=== PATIENT | female | born 1935 | race Caucasian/White ===

== ENCOUNTER 2017-07-01 08:09 | Outpatient (CLI) | payer MEDICARE ==
--- NOTE | 2017-07-01 11:16 | MRI ---
BRAIN MRI WITHOUT CONTRAST: Date: 07/01/17 HISTORY: Unspecified syncope. Fainting x6 months. COMPARISON: None. TECHNIQUE: MRI brain is performed without intravenous Gadolinium administration. Multisequential, multiplanar im aging is performed. FINDINGS: No hemorrhage on the axial gradient echo sequence. Age-appropriate atrophy. Cortical woody-white matte r differentiation is preserved. Ventricles and sulci are patent and symmetric. Central arterial flow- voids are maintained. Absent restricted diffusion. Midline brain parenchymal structures are unremarka ble. Calvarium has a normal T1 marrow signal intensity. Adequate aeration of the sinuses and mastoid air cells. IMPRESSION: 1. Absent restricted diffusion. No acute infarct. 2. Age-appropriate atrophy. POS: JOSHUA
== END 2017-07-01 08:10 | disposition home or self-care (01) ==
LOC: MRI 08:09
PROVIDERS: ATTEND Family Medicine
DX: R55 Syncope and collapse (principal); G31.89 Other specified degenerative diseases of nervous system
CPT/HCPCS: 70551

== ENCOUNTER 2017-10-17 15:46 | Observation (INO) | payer MEDICARE ==
[2017-10-17 16:12] LABS: #Basophils 0.1 thou/uL (0.0-0.2); #Eosinphils 0.2 thou/uL (0.0-0.7); #Lymphocytes 1.5 thou/uL (1.20-3.40); #Monocytes 0.5 thou/uL (0.11-0.59); #Neutrophils 4.5 thou/uL (1.40-6.50); %Basophils 0.8 % (0.0-1.0); %Eosinophils 3.2 % (0.0-10.0); %Lymphocytes 22.1 % (21.0-51.0); %Neutrophils 66.9 % (42.0-75.0); Hemoglobin 13.7 g/dL (12.0-16.0); Mean Corpuscular HGB CONC 33.4 g/dL (32.0-36.0); Mean Corpuscular Hemoglobin 30.7 pg (27.0-31.0); Mean Platelet Volume 9.5 fL (7.4-10.4); Platelet Count 151 thou/uL (130-400); Red Blood Cell (RBC) Count 4.44 mill/uL (4.20-5.40); White Blood Cell (WBC) Count 6.8 thou/uL (4.8-10.8)
--- NOTE | 2017-10-17 16:31 | CT ---
NONCONTRAST CT OF THE BRAIN 10/17/17 INDICATION: 82-year-old female with headache and chest pain. COMPARISON: Prior CT of the brain dated 08/12/13. Prior MR of the brain dated 07/01/17. FINDINGS: There is a small single focus of slight hyperdensity witin the left long radiata on image 16 of ser ies 2 which is nonspecific. There is mild chronic small vessel white matter ischemic change. Septum p ellucidum and third ventricle are midline. Skull and extracranial soft tissues are unremarkable. Ther e are a few opacified air cells within the ethmoid region. IMPRESSION: 1. Small focus of increased density within the periventricular white matter of the left cerebral hemisphere is new from the comparison of 2013. No visible signal abnormality was evidence on a cesar rison MR of the brain dated 07/01/17. A small focus of density may be artifactual in nature. A small fo oswaldo mass lesion within the left cerebral white matter cannot be entirely excluded. A follow up MRI of the brain with and without contrast is recommended for additional characterization. 2. No overt evidence to suggest intraparenchymal hemorrhage, infarct or hydrocephalus. 3. There is generalized cerebral atrophy which appears similar to the comparison MR examination. POS: CET
[2017-10-17 16:34] LABS: ALT (SGPT) 13 U/L (8-55); AST (SGOT) 19 U/L (5-34); Albumin 4.4 g/dL (3.4-4.8); Alkaline Phosphatase 56 U/L (40-150); Anion Gap 9 mmol/L (10-20); BUN (Urea Nitrogen) 13 mg/dL (9.8-20.1); Bilirubin, Total 0.8 mg/dL (0.2-1.2); Calc. Creatinine Clearance 0 mL/min (70-130); Calcium 10.4 mg/dL (7.8-10.44); Carbon Dioxide 33 mmol/L (23-31); Chloride 104 mmol/L (98-107); Estimated GFR-MDRD 60; Globulin 2.7 g/dL (2.4-3.5); Glucose 99 mg/dL (83-110); Potassium 4.4 mmol/L (3.5-5.1); Protein, Total 7.1 g/dL (6.0-8.3); Sodium 142 mmol/L (136-145)
[2017-10-17 16:38] LABS: Troponin I Less than 0.010 ng/mL (< 0.028)
--- NOTE | 2017-10-17 17:04 | RAD ---
AP VIEW OF THE CHEST 10/17/17 INDICATION: History of chest pain and facial numbness. COMPARISON: Prior dated 12/28/10. FINDINGS: There is stable cardiomegaly. There is a new loop recorder overlying the left chest wall. There is ad vanced degenerative change of the left glenohumeral joint Mild vascular calcifications are again seen involving the aortic arch. No consolidation, pleural effusion, pneumothorax is evident. IMPRESSION: No definite acute cardiopulmonary abnormality. POS: CET
[2017-10-17] MEDS ORDERED: Benzonatate 100 MG CAP PO PRN (18:23)
[2017-10-17] MEDS ORDERED: Bisacodyl 5 MG TAB PO PRN (18:23)
[2017-10-17] MEDS ORDERED: Nitroglycerin 0.4 MG TAB (25 Tab Bottle) SL PRN (18:23)
[2017-10-17] MEDS ORDERED: hydrALAZINE 20 MG/ML VIAL SLOW IVP PRN (18:23)
[2017-10-17] MEDS ORDERED: Lorazepam 1 MG TAB PO PRN (18:23)
[2017-10-17] MEDS ORDERED: Loratadine 10 MG TAB PO PRN (18:23)
[2017-10-17] MEDS ORDERED: Ondansetron HCl/PF 4 MG/2 ML Vial IVP PRN (18:23)
[2017-10-17] MEDS ORDERED: Acetaminophen 325 MG TAB PO PRN (18:23)
[2017-10-17] MEDS ORDERED: traMADol HCl 50 MG TAB PO PRN (18:23)
[2017-10-17] MEDS ORDERED: Diabetic Tussin 200 MG/10 ML UDCUP PO PRN (18:23)
[2017-10-17] MEDS ORDERED: Senokot 8.6 MG TAB PO PRN (18:23)
[2017-10-17 19:29] LABS: Troponin I Less than 0.010 ng/mL (< 0.028)
--- NOTE | 2017-10-17 19:58 | ULT ---
EXAM: US carotid doppler standard HISTORY: TIA FINDINGS: Antegrade flow to both vertebral arteries. No elevated peak systolic velocities within the internal carotid arteries. Moderate plaque left internal carotid artery near the bulb. IMPRESSION: No hemodynamically significant stenosis. POS: HOME
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
[2017-10-17] MEDS ORDERED: levETIRAcetam 100 mg/ml Oral Solution PO SCH (21:00)
[2017-10-17] MEDS ORDERED: Atorvastatin Calcium 20 MG TAB PO SCH (21:00)
[2017-10-17 22:29] LABS: Troponin I 0.016 ng/mL (< 0.028)
[2017-10-17] MEDS ORDERED: Acetaminophen 325 MG TAB ONE (22:47)
[2017-10-18] MEDS: Nebivolol HCl 5 MG TAB PO SCH ×2 (04:55→10:54)
[2017-10-18 05:32] LABS: #Eosinphils 0.3 thou/uL (0.0-0.7); #Lymphocytes 1.2 thou/uL (1.20-3.40); #Monocytes 0.4 thou/uL (0.11-0.59); #Neutrophils 3.4 thou/uL (1.40-6.50); %Basophils 0.4 % (0.0-1.0); %Eosinophils 5.1 % (0.0-10.0); %Lymphocytes 23.3 % (21.0-51.0); %Neutrophils 63.3 % (42.0-75.0); Hemoglobin 12.6 g/dL (12.0-16.0); Mean Corpuscular HGB CONC 33.6 g/dL (32.0-36.0); Mean Corpuscular Hemoglobin 30.9 pg (27.0-31.0); Mean Corpuscular Volume 91.8 fL (78.0-98.0); Mean Platelet Volume 9.4 fL (7.4-10.4); Platelet Count 123 thou/uL (130-400); Red Blood Cell (RBC) Count 4.08 mill/uL (4.20-5.40); White Blood Cell (WBC) Count 5.3 thou/uL (4.8-10.8)
[2017-10-18 05:43] LABS: Anion Gap 12 mmol/L (10-20); BUN (Urea Nitrogen) 12 mg/dL (9.8-20.1); Calc. Creatinine Clearance 53 mL/min (70-130); Calcium 9.6 mg/dL (7.8-10.44); Carbon Dioxide 29 mmol/L (23-31); Cardiac Risk 2.3 (Less than 4.5); Chloride 107 mmol/L (98-107); Cholesterol 158 mg/dl (< 200 Desired); Estimated GFR-MDRD 75; Glucose 89 mg/dL (83-110); HDL Cholesterol 70 mg/dL (>60 Neg Risk); LDL Cholesterol, Calculated 80 mg/dL; Potassium 4.3 mmol/L (3.5-5.1); Sodium 144 mmol/L (136-145); Triglycerides 41 mg/dL (Less than 150)
[2017-10-18] MEDS ORDERED: Lisinopril 10 MG TAB PO SCH (09:00)
[2017-10-18] MEDS ORDERED: Enoxaparin Sodium 40 MG/0.4 ML SYRINGE SC SCH (09:00)
[2017-10-18] MEDS ORDERED: Amlodipine 5 MG TAB PO SCH ×2 (09:00→21:00)
[2017-10-18] MEDS ORDERED: Aspirin 325 mg Enteric Coated Tablet PO SCH (09:00)
--- NOTE | 2017-10-18 11:33 | MRI ---
MRI BRAIN WITH AND WITHOUT CONTRAST: 10/18/2017 HISTORY: An 82-year-old female with a TIA and headache. Follow-up abnormality found on noncontrast brain CT o f 10/17/2017. TECHNIQUE: Multiple sequences obtained in axial, sagittal, and coronal planes; pre and post IV injection of gado linium-based contrast agent: MultiHance 11 mL. FINDINGS: The ventricles are normal in size and configuration. There is no restricted diffusion, abnormal intr aaxial enhancement, mass, midline shift or any other mass effect, recent intraaxial hemorrhage, or ex traaxial fluid collection. There are a few scattered punctate T2-hyperintensities in the cerebral wh ite matter consistent with mild chronic ischemic white matter changes due to mild microvascular ather osclerosis. The tiny focal hyperdensity in the left long radiata, demonstrated on the CT of 2017, does not correspond to any focal signal abnormality or abnormal enhancement on this MRI. In fa ct, it does not correspond to any magnetic susceptibility artifact demonstrated on the T2* gradient e cho sequence, and, therefore it is not a focus of hemorrhage. It may have been artifact or a tiny ca lcification with little or no clinical significance. IMPRESSION: 1. Mild chronic ischemic white matter changes. 2. Otherwise negative. jnr POS: JOSHUA
[2017-10-18 11:43] VITALS: TEMP 98
[2017-10-18 11:50] VITALS: BP 151/90
[2017-10-18] MEDS ORDERED: NEBIVOLOL HCL PO SCH (21:00)
[2017-10-18] MEDS ORDERED: LEVETIRACETAM PO SCH (21:00)
--- NOTE | 2017-10-18 21:30 | CON ---
DATE OF CONSULTATION: 10/18/2017 REFERRING PHYSICIAN: Dr. Torrie Ackerman. REASON FOR CONSULTATION: Headache and facial weakness and numbness. HISTORY OF PRESENT ILLNESS: Ms. Clark is a pleasant 82-year-old female, who has been concern ed for evaluation of headache and facial numbness and weakness. Patient reports that on day before y , she had a sudden onset of headache on the bifrontal temporal region. This was sharp and th robbing in quality, [id number] intensity and nonradiating. She did not have any other associ ated symptoms. She had gone to sleep, which did help to resolve the headaches. On yesterday, she bolden d another episode of headache in bifrontal temporal region. This was again throbbing and sharp in qu ality. She also started noticing right facial numbness and weakness. She was brought to [facility]. Patient reports that her symptoms are much better now. She denies headache, chest p ain, palpitation, numbness, tingling, weakness, difficulty with balance at this time. PAST MEDICAL HISTORY: Significant for hypertension, osteoarthritis, osteoporosis, polymyalgia rheuma pari, ovarian cyst, and varicose veins. PAST SURGICAL HISTORY: Significant for tonsillectomy, appendectomy, surgery for ovarian cyst removal x3, breast surgery, knee surgery, right breast biopsy, trigger finger surgery, and bladder suspensio n. SOCIAL HISTORY: She drinks 2-3 drinks per day for years. She denies alcohol or illicit drug use and smoking. She is . FAMILY HISTORY: Significant for diabetes. CURRENT MEDICATIONS: Please review MAR. ALLERGIES: Include CEPHALEXIN, SULFA DRUGS, NEOMYCIN, CIPROFLOXACIN, and INDOMETHACIN, otherwise unr emarkable. REVIEW OF SYSTEMS: As mentioned above in the HPI, otherwise negative. PHYSICAL EXAMINATION: VITAL SIGNS: Blood pressure 132/79, pulse of 75, temperature of 98.0, respirations of 16, O2 sats of 96% on room air. GENERAL: Well-developed, well-nourished male in no apparent distress. RESPIRATORY: Clear to auscultation bilaterally. CARDIOVASCULAR: Regular rate and rhythm. NEUROLOGIC: Mental status: Patient is awake, alert, oriented x3. Speech and language: Fluent spee ch. Cranial nerves: Pupils are 3 mm and reactive. Visual domingo are intact. External muscles are intact. No cyanosis. Face is symmetric. Tongue and uvula midline. Motor exam showed normal tone a nd bulk with 5/5 strength in both upper and lower extremities. Sensory: Sensation is intact and sym metric. Deep tendon reflexes are 1+ reflex in both upper and lower extremities. Babinski plantar re sponse is flexion bilaterally. Coordination intact to [id number]-sikb-[id number] and finger tapping bilatera lly. LABORATORY DATA: Reviewed, which included CBC, BMP, lipid profile, which is essentially normal. IMAGING STUDIES: MRI brain without contrast was reviewed, which showed no acute intracranial abnorma lity. Echocardiogram results were reviewed, which showed EF of 60% to 65% without any wall motion ab normality, intracardiac mass, or thrombus. IMPRESSION: 1. Intractable headache. 2. 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 ASSESSMENT AND PLAN: Ms. Clark is a pleasant 82-year-old female, who presented to the 1-2-da y history of severe intractable headache. Based on the decision, it was felt this may be migraine in origin given her age, underlying temporal arteritis cannot be completely excluded. I will obtain ES R and CRP is there slightly or mildly elevated. Patient is going to be discharged home with outpatie nt followup. If her sed rate and CRP are both significantly elevated, then I would recommend obtaini ng temporal artery biopsy and starting her on high-dose steroids. Continue supportive care. Continu e current medical management. Thank you for consultation.
--- NOTE | 2017-10-19 02:57 | DIS ---
DATE OF ADMISSION: 10/17/2017 DATE OF DISCHARGE: 10/18/2017 PRIMARY CARE PHYSICIAN: Dr. Linda Barnard. DISCHARGE DIAGNOSIS: Headache. CONDITION OF PATIENT ON THE DAY OF DISCHARGE: Stable. I assessed Ms. Clark on the day of discharge. She denies any chest pain or shortness of breath. She denies any headache at this time. Vital signs are stable. S1 and S2 are heard, regular. Lungs are clear to auscultation bilaterally. CONSULTATIONS DURING THIS HOSPITALIZATION: Neurology, Dr. Quita Isaac. HOSPITAL COURSE: Ms. Clark is a pleasant 82-year-old lady who was admitted to [facility] for right-sided hemicranial headache on 10/17/2017. Please refer Dr. Ackerman's history and physical note for further details. Carotid Doppler did not show any significant stenosis. MRI of t he brain did not show any acute intracranial process. She had a 2D echocardiogram, which showed left ventricular ejection fraction of 60% to 65%, normal right ventricular size and function, mild aortic regurgitation, and mild mitral regurgitation. Her symptoms resolved. She was seen by Neurology Service and is being discharged home in a stable co ndition. During this hospitalization, she had triglycerides 41, cholesterol 158, LDL cholesterol 80, and HDL c holesterol 70. C-reactive protein was less than 0.5. ESR was 1. DISCHARGE MEDICATIONS: No change was made to her preadmission home medications as dictated by Dr. Jose pierre on history and physical note dated 10/17/2017. Many thanks for allowing me to participate in your patient's care. Please feel free to contact me wi th any questions or concerns. DISCHARGE DESTINATION: Home.
[2017-10-19] MEDS ORDERED: Lisinopril 10 MG TAB PO SCH (09:00)
[2017-10-19] MEDS ORDERED: Prevnar 13-Val Conj/PF 0.5 ML SYRINGE IM ONE (09:00)
--- NOTE | 2017-10-19 11:57 | EKG ---
Test Reason : Blood Pressure : / mmHG Vent. Rate : 055 BPM Atrial Rate : 055 BPM P-R Int : 188 ms QRS Dur : 088 ms QT Int : 436 ms P-R-T Axes : 056 -12 028 degrees QTc Int : 417 ms Sinus bradycardia with marked sinus arrhythmia Otherwise normal ECG Confirmed by GAVIOTA PAYAN ([id number]), department editor NATHALIE PALMER ([id number]) on 10/19/2017 11:57:38 AM Referred By: Confirmed By:GAVIOTA PAYAN
--- NOTE | 2017-10-19 11:57 | EKG ---
Test Reason : CHEST PAIN Blood Pressure : / mmHG Vent. Rate : 062 BPM Atrial Rate : 062 BPM P-R Int : 188 ms QRS Dur : 082 ms QT Int : 400 ms P-R-T Axes : 086 -09 033 degrees QTc Int : 406 ms Poor data quality, interpretation may be adversely affected Sinus rhythm with Premature atrial complexes Moderate voltage criteria for LVH, may be normal variant Borderline ECG Confirmed by GAVIOTA PAYAN ([id number]), newspaper editor managing NATHALIE PALMER ([id number]) on 10/19/2017 11:57:28 AM Referred By: ORA Confirmed By:GAVIOTA PAYAN
== END 2017-10-18 15:03 | disposition home or self-care (01) ==
LOC: ERS 15:46 → ERHOLD 18:11 → 2SE 10-18 00:19
PROVIDERS: ADMIT Internal Medicine; ATTEND Internal Medicine
DX: R51 Headache (principal); M47.22 Other spondylosis with radiculopathy, cervical region; I10 Essential (primary) hypertension; M19.90 Unspecified osteoarthritis, unspecified site; M81.0 Age-related osteoporosis without current pathological fracture; Z79.82 Long term (current) use of aspirin; Z79.899 Other long term (current) drug therapy; Z88.1 Allergy status to other antibiotic agents; Z88.2 Allergy status to sulfonamides; Z88.8 Allergy status to other drugs, medicaments and biological substances
CPT/HCPCS: 70450; 70553; 71045; 80048; 80053; 80061; 82553; 84484 ×2; 85025 ×2; 85652; 86140; 93005; 93306; 93880; 96372; 97139 ×3; 99285; G0378 ×2; G8978; G8979; G8980; G8987; G8988; G8989; 36415; 70551; A4216; G9168-GN-CI; G9169-GN-CI; J1650

== ENCOUNTER 2019-09-21 13:28 | Outpatient (CLI) | payer MEDICARE ==
--- NOTE | 2019-09-21 14:22 | RAD ---
Exam: 3 views sacrum and coccyx FINDINGS: Mild degenerative change in both sacral iliac joints. Visualized sacrum and pelvis are inta ct. Sacral ala are preserved. IMPRESSION: Mild degenerative changes in both SI joints.
--- NOTE | 2019-09-21 15:27 | CT ---
CT LUMBAR SPINE WITHOUT CONTRAST: Date: 09/21/2019 INDICATION: Spondylolisthesis. Back pain. Right radiculopathy. FINDINGS: The lumbar vertebra maintain height. Degenerative disc changes are prominent at the L3-4, L4-5, and L 5-S1 levels. There is Grade I anterolisthesis at L4-5. No evidence of posterior spondylolysis. There is a mild curvature to the left in the coronal plane. Findings at each disc level are described: L1-2: Mild disc bulge. No significant central canal or foraminal stenosis. L2-3: Mild disc bulge. Facet hypertrophy. No significant central canal or foraminal stenosis. L3-4: Mild diffuse disc bulge. Prominent facet hypertrophy. These changes compress the thecal sac re sulting in moderate central canal stenosis. Right foraminal stenosis due to disc osteophyte complex p rojecting into the foramina and contacting the exiting right L3 nerve root. L4-5: Grade I anterolisthesis with broad based disc bulge. Very prominent facet hypertrophy. Moderat e to severe central canal stenosis. Bilateral foraminal stenosis is present. L5-S1: Mild broad based disc bulge. Facet hypertrophy without significant central canal stenosis. Mi ld bilateral foraminal narrowing secondary to the diffuse disc bulge and facet hypertrophy. IMPRESSION: 1. There are multilevel degenerative disc changes, most prominent at L3-4, L4-5, and L5-S1, as descr ibed above. 2. Grade I anterolisthesis at L4-5 is present with central canal and foraminal stenosis, as describe d above. POS: AH
--- NOTE | 2019-09-21 15:39 | CT ---
EXAM: CT Pelvis WO Con PROVIDED CLINICAL HISTORY: Right-sided groin pain that radiates to right buttock and upper back. Tingling in feet. Spondylolisth esis. COMPARISON: None FINDINGS: Degenerative changes are seen in the lower lumbar spine. Grade 1 anterolisthesis of L4 on L5 and L5 o n S1 is present likely related to the prominent facet degenerative changes at this level. 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 Osteoarthritis involves the sacroiliac joints bilaterally as well as each hip. Degenerative changes a re seen at the pubic symphysis. There is a 1.2 cm circumscribed lucency seen in the right iliac bone which has an appearance of a lesion of low biological activity. No fracture or dislocation is seen involving the pelvis. Vascular calcifications are seen in the abdominal aorta and involving the iliac arteries. Colonic diverticulosis is present. IMPRESSION: 1. Degenerative changes involving the pelvis and bilateral hips as well as lower lumbar spine with gr kayleen 1 anterolisthesis of L4 on L5 and L5 on S1. 2. No acute osseous abnormality is seen. 3. Colonic diverticulosis. 4. Vascular calcifications.
== END 2019-09-21 13:29 | disposition home or self-care (01) ==
LOC: BICCT 13:28
PROVIDERS: ATTEND Nurse Practitioner Family
DX: M43.16 Spondylolisthesis, lumbar region (principal); M53.3 Sacrococcygeal disorders, not elsewhere classified; M47.816 Spondylosis without myelopathy or radiculopathy, lumbar region; M16.0 Bilateral primary osteoarthritis of hip; M43.17 Spondylolisthesis, lumbosacral region; M51.36 Other intervertebral disc degeneration, lumbar region; M51.37 Other intervertebral disc degeneration, lumbosacral region; M48.061 Spinal stenosis, lumbar region without neurogenic claudication; M48.07 Spinal stenosis, lumbosacral region; K57.30 Diverticulosis of large intestine without perforation or abscess without bleeding; I70.90 Unspecified atherosclerosis
CPT/HCPCS: 72131; 72192; 72220

== ENCOUNTER 2024-01-26 18:05 | Inpatient (IN) | payer MEDICARE, OTHER ==
[2024-01-26] MEDS ORDERED: Acetaminophen 500 MG TAB ONE (19:08)
[2024-01-26 19:52] LABS: #Basophils Less than 0.03 10x3/uL (0.0-0.2); %Basophils 0.2 % (0.0-1.0); %Eosinophils 0.3 % (0.0-10.0); %Lymphocytes 4.3 % (21.0-51.0); %Monocytes 5.1 % (0.0-10.0); %Neutrophils 88.7 % (42.0-75.0); Hematocrit 32.9 % (36.0-47.0); Hemoglobin 10.7 g/dL (12.0-16.0); Mean Corpuscular HGB CONC 32.5 g/dL (32.0-36.0); Mean Corpuscular Hemoglobin 30.1 pg (27.0-31.0); Mean Corpuscular Volume 92.7 fL (78.0-98.0); Platelet Count 130 10x3/uL (130-400); RBC Distribution Width 14.2 % (11.5-14.5); Red Blood Cell (RBC) Count 3.55 mill/uL (4.20-5.40)
[2024-01-26] MEDS ORDERED: Ketorolac Tromethamine 30 MG (1 mL) VIAL ONE (19:53)
[2024-01-26 20:06] LABS: INR-International Normal Ratio 1.2; PTT 36.3 sec (22.9-36.1); Prothrombin Time 15.2 sec (12.0-14.7)
[2024-01-26] MEDS ORDERED: Dextrose 5% in Water 1,000 ML IV PRN (20:12)
[2024-01-26] MEDS ORDERED: Ondansetron ODT 4 MG TAB PO PRN (20:12)
[2024-01-26] MEDS ORDERED: Glucagon 1 MG/ML KIT IM PRN (20:12)
[2024-01-26] MEDS ORDERED: hydrALAZINE 20 MG/ML VIAL SLOW IVP PRN (20:12)
[2024-01-26] MEDS ORDERED: Dextrose 50% Abboject 50 ML SYRINGE SLOW IVP PRN (20:12)
[2024-01-26] MEDS ORDERED: Acetaminophen 325 MG TAB PO PRN (20:12)
[2024-01-26] MEDS ORDERED: traMADol HCl 50 MG TAB PO PRN (20:12)
[2024-01-26] MEDS ORDERED: Ondansetron PF 4 MG/2 ML Vial IVP PRN (20:12)
[2024-01-26 20:23] LABS: ALT (SGPT) 17 U/L (8-55); AST (SGOT) 19 U/L (5-34); Albumin 3.6 g/dL (3.4-4.8); Alkaline Phosphatase 55 U/L (40-110); Anion Gap 16 mmol/L (10-20); BUN (Urea Nitrogen) 24 mg/dL (9.8-20.1); Bilirubin, Total 0.8 mg/dL (0.2-1.2); Calc. Creatinine Clearance 0 mL/min (70-130); Calcium 9.1 mg/dL (7.8-10.44); Carbon Dioxide 24 mmol/L (23-31); Chloride 102 mmol/L (98-107); Estimated GFR 59; Globulin 2.5 g/dL (2.4-3.5); Glucose 156 mg/dL (83-110); Potassium 4.6 mmol/L (3.5-5.1); Protein, Total 6.1 g/dL (5.8-8.1); Sodium 137 mmol/L (136-145)
[2024-01-26] MEDS: Morphine 2 MG/ML VIAL SLOW IVP PRN (22:06)
[2024-01-26] MEDS: Melatonin 3 MG TAB PO PRN (22:41)
[2024-01-27 04:45] VITALS: BMI 19.9
[2024-01-27 05:21] LABS: Anion Gap 13 mmol/L (10-20); BUN (Urea Nitrogen) 22 mg/dL (9.8-20.1); Calc. Creatinine Clearance 43 mL/min (70-130); Calcium 8.6 mg/dL (7.8-10.44); Carbon Dioxide 22 mmol/L (23-31); Chloride 105 mmol/L (98-107); Estimated GFR 77; Glucose 101 mg/dL (83-110); Potassium 4.6 mmol/L (3.5-5.1); Sodium 135 mmol/L (136-145)
[2024-01-27 05:23] LABS: #Basophils Less than 0.03 10x3/uL (0.0-0.2); %Basophils 0.1 % (0.0-1.0); %Eosinophils 0.7 % (0.0-10.0); %Lymphocytes 8.3 % (21.0-51.0); %Monocytes 6.6 % (0.0-10.0); %Neutrophils 83.5 % (42.0-75.0); Hematocrit 32.5 % (36.0-47.0); Hemoglobin 9.9 g/dL (12.0-16.0); Mean Corpuscular HGB CONC 30.5 g/dL (32.0-36.0); Mean Corpuscular Volume 98.5 fL (78.0-98.0); Mean Platelet Volume 12.5 fL (7.4-10.4); Platelet Count 108 10x3/uL (130-400); RBC Distribution Width 14.5 % (11.5-14.5)
[2024-01-27] MEDS ORDERED: Clindamycin/D5W 900 MG in Premix 1 BAG IVPB SCH (07:15)
[2024-01-27] MEDS: Divalproex Sodium 125 mg Sprinkle Capsule PO SCH (07:57)
[2024-01-27] MEDS: Lisinopril 5 MG TAB PO SCH (07:57)
[2024-01-27] MEDS: busPIRone HCl 10 MG TAB PO SCH (07:57)
[2024-01-27] MEDS: Sertraline 100 MG TAB PO SCH (07:58)
[2024-01-27] MEDS: levETIRAcetam 500 mg/5 ml Oral Solution PO SCH (08:23)
[2024-01-27] MEDS: Nebivolol HCl 5 MG TAB PO SCH (08:23)
[2024-01-27] MEDS ORDERED: Divalproex Sodium DR 500 MG TAB PO SCH (09:00)
[2024-01-27] MEDS ORDERED: Lorazepam 2 MG/ML VIAL SLOW IVP PRN (10:23)
[2024-01-27] MEDS ORDERED: PROPOFOL 20 ML ONE (11:43)
[2024-01-27] MEDS ORDERED: Rocuronium Bromide 10 MG/ML (10ML VIAL) ONE (11:44)
[2024-01-27] MEDS ORDERED: Lidocaine 1% PF 5 ML VIAL ONE (11:44)
[2024-01-27] MEDS ORDERED: fentaNYL 50 mcg/mL 1 mL Vial ONE ×2 (11:44→14:18)
[2024-01-27] MEDS ORDERED: Clindamycin/D5W 900 mg/50 ml Premix Bag ONE (11:47)
[2024-01-27] MEDS ORDERED: PHENYLEPHRINE-NS 100 MCG/ML 10 ML SYRINGE ONE (12:07)
[2024-01-27] MEDS ORDERED: SUGAMMADEX SODIUM 200 MG/2 ML VIAL ONE ×2 (12:58→13:07)
[2024-01-27] MEDS: Clindamycin 150 MG CAP PO SCH (14:26)
[2024-01-27 17:12] VITALS: BMI 19.9
[2024-01-28 05:47] LABS: #Basophils 0.03 10x3/uL (0.0-0.2); %Basophils 0.3 % (0.0-1.0); %Eosinophils 1.3 % (0.0-10.0); %Lymphocytes 7.8 % (21.0-51.0); %Monocytes 6.7 % (0.0-10.0); %Neutrophils 82.9 % (42.0-75.0); Hematocrit 27.8 % (36.0-47.0); Hemoglobin 9.1 g/dL (12.0-16.0); Mean Corpuscular HGB CONC 32.7 g/dL (32.0-36.0); Mean Corpuscular Hemoglobin 30.3 pg (27.0-31.0); Mean Corpuscular Volume 92.7 fL (78.0-98.0); Mean Platelet Volume 12.7 fL (7.4-10.4); Platelet Count 129 10x3/uL (130-400); RBC Distribution Width 14.5 % (11.5-14.5)
[2024-01-28] MEDS: Cyclobenzaprine 10 MG TAB PO PRN (10:25)
[2024-01-28] MEDS: Senokot S 8.6-50 MG TAB PO SCH (10:27)
[2024-01-28] MEDS: Ferrous Sulfate 325 MG TAB PO SCH (10:27)
[2024-01-28] MEDS: Heparin 5,000 UNITS/ML VIAL SC SCH (10:27)
[2024-01-29 05:27] LABS: #Basophils Less than 0.03 10x3/uL (0.0-0.2); %Basophils 0.2 % (0.0-1.0); %Eosinophils 3.4 % (0.0-10.0); %Lymphocytes 9.7 % (21.0-51.0); %Monocytes 7.5 % (0.0-10.0); %Neutrophils 78.4 % (42.0-75.0); Hematocrit 26.1 % (36.0-47.0); Hemoglobin 8.6 g/dL (12.0-16.0); Mean Corpuscular Hemoglobin 30.3 pg (27.0-31.0); Mean Corpuscular Volume 91.9 fL (78.0-98.0); Mean Platelet Volume 11.9 fL (7.4-10.4); Platelet Count 154 10x3/uL (130-400); RBC Distribution Width 14.4 % (11.5-14.5); Red Blood Cell (RBC) Count 2.84 mill/uL (4.20-5.40)
[2024-01-29 06:02] VITALS: TEMP 97.6
[2024-01-29 11:44] VITALS: BP 153/82
== END 2024-01-29 12:55 | DRG 522 ==
LOC: ERS 18:05 → SURG A 19:59
PROVIDERS: ADMIT Surgery; ATTEND Surgery
PROC: 0SRR0JZ Replacement of Right Hip Joint, Femoral Surface with Synthetic Substitute, Open Approach (ICD-10-PCS; principal; 2024-01-27)
DX: S72.001A Fracture of unspecified part of neck of right femur, initial encounter for closed fracture (principal); F03.94 Unspecified dementia, unspecified severity, with anxiety; W19.XXXA Unspecified fall, initial encounter; G40.909 Epilepsy, unspecified, not intractable, without status epilepticus; R29.6 Repeated falls; S42.302D Unspecified fracture of shaft of humerus, left arm, subsequent encounter for fracture with routine healing; F32.9 Major depressive disorder, single episode, unspecified; Z88.1 Allergy status to other antibiotic agents; Z88.2 Allergy status to sulfonamides; Z91.040 Latex allergy status; Z86.73 Personal history of transient ischemic attack (TIA), and cerebral infarction without residual deficits; Z90.10 Acquired absence of unspecified breast and nipple; Z79.899 Other long term (current) drug therapy
CPT/HCPCS: 36415; 36416; 70450; 71045; 72125; 72170; 80048; 80053; 85025; 85610; 85730; 86850; 86900; 86901; 93005; 96374; C1776; G0390; J1644; J1885; J2272; J2704; J3010; J3490

== ENCOUNTER 2024-02-01 10:01 | Inpatient (IN) | payer MEDICARE ==
[2024-02-01 11:02] LABS: #Basophils 0.05 10x3/uL (0.0-0.2); %Basophils 0.7 % (0.0-1.0); %Eosinophils 3.8 % (0.0-10.0); %Lymphocytes 16.2 % (21.0-51.0); %Monocytes 7.7 % (0.0-10.0); %Neutrophils 69.9 % (42.0-75.0); Hematocrit 32.8 % (36.0-47.0); Hemoglobin 10.1 g/dL (12.0-16.0); Mean Corpuscular HGB CONC 30.8 g/dL (32.0-36.0); Mean Corpuscular Hemoglobin 29.8 pg (27.0-31.0); Mean Corpuscular Volume 96.8 fL (78.0-98.0); Mean Platelet Volume 10.7 fL (7.4-10.4); Platelet Count 243 10x3/uL (130-400); RBC Distribution Width 14.2 % (11.5-14.5); Red Blood Cell (RBC) Count 3.39 mill/uL (4.20-5.40)
[2024-02-01 11:16] LABS: Lipase 12 U/L (8-78)
[2024-02-01 11:19] LABS: ALT (SGPT) 11 U/L (8-55); AST (SGOT) 18 U/L (5-34); Acetaminophen Less than 10 mcg/mL (Less than 10); Albumin 2.9 g/dL (3.4-4.8); Alcohol Less than 10.0 mg/dL (Less than 10); Alkaline Phosphatase 55 U/L (40-110); Anion Gap 15 mmol/L (10-20); BUN (Urea Nitrogen) 18 mg/dL (9.8-20.1); Bilirubin, Total 1.3 mg/dL (0.2-1.2); Calc. Creatinine Clearance 0 mL/min (70-130); Calcium 8.9 mg/dL (7.8-10.44); Carbon Dioxide 23 mmol/L (23-31); Chloride 107 mmol/L (98-107); Estimated GFR 85; Globulin 3.2 g/dL (2.4-3.5); Glucose 96 mg/dL (83-110); Potassium 4.8 mmol/L (3.5-5.1); Protein, Total 6.1 g/dL (5.8-8.1); Salicylate Less than 8.0 mg/dL (Less than 8.0); Sodium 140 mmol/L (136-145)
[2024-02-01] MEDS ORDERED: Iopamidol-370 76% 500 ML MDV (1 ML CHARGE) ONE (11:25)
[2024-02-01 11:28] LABS: Bilirubin Negative (Negative); Blood, Urine 2+ (Negative); CAUTI Indications for Culture Alt mental st,lethar; Clarity Turbid (Clear); Glucose, Urine (Dipstick) Normal (Negative); Ketone, Urine Negative (Negative); Leukocyte 500 Leu/uL (Negative); Nitrite 2+ (Negative); Protein, Urine (Dipstick) Negative (Neg-Trace); RBC/HPF 21-50 HPF (0-3); Specific Gravity, Urine 1.009 (1.002-1.036); Squamous Epithelial None Seen HPF (0-3); Urobilinogen Normal mg/dL (Less than 2); WBC/HPF Greater than 50 HPF (0-3)
[2024-02-01 11:30] LABS: Bacteria/HPF 1+ HPF (None Seen)
[2024-02-01 11:32] LABS: Amphetamine Not Detected (NotDetected); Barbiturates Screen Not Detected (NotDetected); Benzodiazepine Screen Not Detected (NotDetected); Cocaine Metabolite Screen Not Detected (NotDetected); Methadone Not Detected (NotDetected); Methamphetamine Not Detected (NotDetected); Opiate Screen Not Detected (NotDetected); Oxycodone Screen Not Detected (NotDetected); Phencyclidine (PCP) Not Detected (NotDetected); THC/Cannabinoid Screen Not Detected (NotDetected); Tricyclic Screen Not Detected (NotDetected); Urine Culture Reflex Yes Yes
[2024-02-01 11:33] LABS: Troponin I 0.016 ng/mL (< 0.028)
[2024-02-01] MEDS ORDERED: CEFAZOLIN 1 GM VIAL ONE (12:04)
[2024-02-01] MEDS ORDERED: Vancomycin 1 GM/200 ML (FROZEN) BAG ONE (12:05)
[2024-02-01] MEDS ORDERED: cefTRIAXone (ROCEPHIN) 1 GM VIAL ONE (12:11)
[2024-02-01] MEDS ORDERED: Acetaminophen 650 MG Suppository PR PRN (13:22)
[2024-02-01] MEDS ORDERED: Senokot S 8.6-50 MG TAB PO PRN (13:22)
[2024-02-01] MEDS ORDERED: Acetaminophen 325 MG TAB PO PRN (13:22)
[2024-02-01] MEDS ORDERED: Ondansetron ODT 4 MG TAB PO PRN (13:22)
[2024-02-01] MEDS ORDERED: Bisacodyl 10 MG SUPP PR PRN (13:22)
[2024-02-01] MEDS ORDERED: Ondansetron PF 4 MG/2 ML Vial IVP PRN (13:22)
[2024-02-01] MEDS ORDERED: Acetaminophen/Codeine 30-300mg Tablet PO PRN (13:22)
[2024-02-01] MEDS ORDERED: Guaifenesin DM 100-10/5 ML UDCUP PO PRN (13:22)
[2024-02-01] MEDS ORDERED: Bisacodyl 5 MG TAB PO PRN (13:22)
[2024-02-01] MEDS ORDERED: hydrALAZINE 20 MG/ML VIAL SLOW IVP PRN (13:25)
[2024-02-01 15:50] VITALS: BMI 22.4
[2024-02-01] MEDS: Sodium Chloride 0.9% 1,000 ML IV SCH (16:18)
[2024-02-01] MEDS: Acetaminophen 325 MG TAB PO SCH (17:43)
[2024-02-01] MEDS: Lorazepam 2 MG/ML VIAL SLOW IVP PRN (18:34)
[2024-02-01] MEDS ORDERED: Vancomycin 1 GM in Premix 1 BAG IVPB SCH (21:00)
[2024-02-01] MEDS ORDERED: VANCOMYCIN 1.25 GM/250 ML BAG 1.25 GM in Premix 1 BAG IVPB SCH (23:59)
[2024-02-02 05:12] LABS: #Basophils 0.05 10x3/uL (0.0-0.2); %Basophils 0.5 % (0.0-1.0); %Eosinophils 2.4 % (0.0-10.0); %Lymphocytes 9.1 % (21.0-51.0); %Monocytes 6.9 % (0.0-10.0); %Neutrophils 80.1 % (42.0-75.0); Hematocrit 31.2 % (36.0-47.0); Hemoglobin 9.8 g/dL (12.0-16.0); Mean Corpuscular HGB CONC 31.4 g/dL (32.0-36.0); Mean Corpuscular Hemoglobin 30.1 pg (27.0-31.0); Mean Corpuscular Volume 95.7 fL (78.0-98.0); Mean Platelet Volume 10.9 fL (7.4-10.4); Platelet Count 257 10x3/uL (130-400); RBC Distribution Width 13.8 % (11.5-14.5); Red Blood Cell (RBC) Count 3.26 mill/uL (4.20-5.40)
[2024-02-02 05:20] LABS: Vancomycin, Random 6.7 ug/mL (See Comment)
[2024-02-02 05:54] LABS: ALT (SGPT) 12 U/L (8-55); AST (SGOT) 23 U/L (5-34); Albumin 2.8 g/dL (3.4-4.8); Alkaline Phosphatase 59 U/L (40-110); Anion Gap 17 mmol/L (10-20); BUN (Urea Nitrogen) 13 mg/dL (9.8-20.1); Bilirubin, Total 1.3 mg/dL (0.2-1.2); Calc. Creatinine Clearance 63 mL/min (70-130); Calcium 8.7 mg/dL (7.8-10.44); Carbon Dioxide 22 mmol/L (23-31); Chloride 105 mmol/L (98-107); Estimated GFR 88; Globulin 2.9 g/dL (2.4-3.5); Glucose 89 mg/dL (83-110); Potassium 4.7 mmol/L (3.5-5.1); Protein, Total 5.7 g/dL (5.8-8.1); Sodium 139 mmol/L (136-145)
[2024-02-02] MEDS: Vancomycin HCl 750 MG in Sodium Chloride 0.9% 250 ML 250 ML IVPB SCH (06:28)
[2024-02-02] MEDS: Enoxaparin 30 MG (0.3 mL) SYRINGE SC SCH (08:46)
[2024-02-02] MEDS ORDERED: Senokot S 8.6-50 MG TAB PO SCH (09:00)
[2024-02-02] MEDS ORDERED: Sertraline 25 MG TAB PO SCH (09:00)
[2024-02-02] MEDS ORDERED: Lisinopril 10 MG TAB PO SCH (09:00)
[2024-02-02] MEDS ORDERED: Divalproex Sodium DR 500 MG TAB PO SCH (09:00)
[2024-02-02] MEDS ORDERED: NEBIVOLOL HCL PO SCH (09:00)
[2024-02-02] MEDS ORDERED: LEVETIRACETAM 250 MG PO SCH (09:00)
[2024-02-02] MEDS: busPIRone HCl 10 MG TAB PO SCH (09:11)
[2024-02-02] MEDS: Ferrous Sulfate 325 MG TAB PO SCH (09:11)
[2024-02-02] MEDS: Divalproex Sodium 125 mg Sprinkle Capsule PO SCH (09:11)
[2024-02-02] MEDS: levETIRAcetam 500 MG TAB PO SCH (09:11)
[2024-02-02] MEDS: Lisinopril 5 MG TAB PO SCH (09:11)
[2024-02-02] MEDS: Nebivolol HCl 5 MG TAB PO SCH (09:12)
[2024-02-02] MEDS: Sertraline 100 MG TAB PO SCH (09:12)
[2024-02-02] MEDS: Senokot S 8.6-50 MG TAB PO SCH (09:12)
[2024-02-02] MEDS ORDERED: VANCOMYCIN 1.25 GM/250 ML BAG 1.25 GM in Premix 1 BAG IVPB SCH ×2 (11:00→13:00)
[2024-02-02] MEDS ORDERED: cefTRIAXone\\ROCEPHIN 1 GM in Sodium Chloride 0.9% 100 ML IVPB SCH (12:00)
[2024-02-02] MEDS: levETIRAcetam 500 MG (5 mL) VIAL SLOW IVP SCH (15:37)
[2024-02-02] MEDS ORDERED: levETIRAcetam 500 MG (5 mL) VIAL SLOW IVP SCH (21:00)
[2024-02-03] MEDS: Enoxaparin 40 MG (0.4 mL) SYRINGE SC SCH (09:16)
[2024-02-03] MEDS: levETIRAcetam 500 MG (5 mL) VIAL SLOW IVP SCH (09:16)
[2024-02-03 10:15] LABS: #Basophils 0.05 10x3/uL (0.0-0.2); %Basophils 0.6 % (0.0-1.0); %Eosinophils 3.1 % (0.0-10.0); %Lymphocytes 11.7 % (21.0-51.0); %Monocytes 6.6 % (0.0-10.0); %Neutrophils 76.2 % (42.0-75.0); Hematocrit 31.5 % (36.0-47.0); Hemoglobin 9.9 g/dL (12.0-16.0); Mean Corpuscular HGB CONC 31.4 g/dL (32.0-36.0); Mean Corpuscular Hemoglobin 30.1 pg (27.0-31.0); Mean Corpuscular Volume 95.7 fL (78.0-98.0); Mean Platelet Volume 9.8 fL (7.4-10.4); Platelet Count 293 10x3/uL (130-400); RBC Distribution Width 13.9 % (11.5-14.5); Red Blood Cell (RBC) Count 3.29 mill/uL (4.20-5.40)
[2024-02-03 10:42] LABS: Anion Gap 16 mmol/L (10-20); BUN (Urea Nitrogen) 13 mg/dL (9.8-20.1); Calc. Creatinine Clearance 60 mL/min (70-130); Calcium 8.9 mg/dL (7.8-10.44); Carbon Dioxide 23 mmol/L (23-31); Chloride 103 mmol/L (98-107); Estimated GFR 87; Glucose 75 mg/dL (83-110); Magnesium 1.6 mg/dL (1.6-2.6); Sodium 138 mmol/L (136-145)
[2024-02-04 05:57] LABS: #Basophils 0.03 10x3/uL (0.0-0.2); %Basophils 0.4 % (0.0-1.0); %Eosinophils 4.3 % (0.0-10.0); %Lymphocytes 12.7 % (21.0-51.0); %Neutrophils 69.4 % (42.0-75.0); Hematocrit 28.9 % (36.0-47.0); Hemoglobin 9.5 g/dL (12.0-16.0); Mean Corpuscular HGB CONC 32.9 g/dL (32.0-36.0); Mean Corpuscular Hemoglobin 29.9 pg (27.0-31.0); Mean Corpuscular Volume 90.9 fL (78.0-98.0); Mean Platelet Volume 10.4 fL (7.4-10.4); Platelet Count 292 10x3/uL (130-400); RBC Distribution Width 13.9 % (11.5-14.5); Red Blood Cell (RBC) Count 3.18 mill/uL (4.20-5.40)
[2024-02-04 06:13] LABS: Anion Gap 14 mmol/L (10-20); BUN (Urea Nitrogen) 11 mg/dL (9.8-20.1); Calc. Creatinine Clearance 62 mL/min (70-130); Calcium 8.7 mg/dL (7.8-10.44); Carbon Dioxide 25 mmol/L (23-31); Chloride 103 mmol/L (98-107); Estimated GFR 88; Glucose 69 mg/dL (83-110); Magnesium 1.7 mg/dL (1.6-2.6); Potassium 3.9 mmol/L (3.5-5.1); Sodium 138 mmol/L (136-145)
[2024-02-04] MEDS: cefTRIAXone\\ROCEPHIN 1 GM in Sodium Chloride 0.9% 100 ML IVPB SCH (10:05)
[2024-02-05 05:51] LABS: #Basophils 0.03 10x3/uL (0.0-0.2); %Basophils 0.4 % (0.0-1.0); %Eosinophils 3.7 % (0.0-10.0); %Lymphocytes 11.7 % (21.0-51.0); %Monocytes 9.1 % (0.0-10.0); %Neutrophils 71.8 % (42.0-75.0); Hematocrit 33.7 % (36.0-47.0); Hemoglobin 10.6 g/dL (12.0-16.0); Mean Corpuscular HGB CONC 31.5 g/dL (32.0-36.0); Mean Corpuscular Hemoglobin 29.5 pg (27.0-31.0); Mean Corpuscular Volume 93.9 fL (78.0-98.0); Mean Platelet Volume 9.6 fL (7.4-10.4); Platelet Count 320 10x3/uL (130-400); Red Blood Cell (RBC) Count 3.59 mill/uL (4.20-5.40)
[2024-02-05 05:59] LABS: Anion Gap 11 mmol/L (10-20); BUN (Urea Nitrogen) 12 mg/dL (9.8-20.1); Calc. Creatinine Clearance 56 mL/min (70-130); Calcium 8.5 mg/dL (7.8-10.44); Carbon Dioxide 24 mmol/L (23-31); Chloride 105 mmol/L (98-107); Estimated GFR 85; Glucose 87 mg/dL (83-110); Magnesium 1.8 mg/dL (1.6-2.6); Potassium 3.9 mmol/L (3.5-5.1); Sodium 136 mmol/L (136-145)
[2024-02-05] MEDS: traMADol HCl 50 MG TAB PO PRN (15:08)
[2024-02-06 05:53] LABS: #Basophils Less than 0.03 10x3/uL (0.0-0.2); %Basophils 0.3 % (0.0-1.0); %Eosinophils 3.9 % (0.0-10.0); %Lymphocytes 12.5 % (21.0-51.0); %Monocytes 7.7 % (0.0-10.0); %Neutrophils 72.6 % (42.0-75.0); Hematocrit 30.2 % (36.0-47.0); Hemoglobin 9.7 g/dL (12.0-16.0); Mean Corpuscular HGB CONC 32.1 g/dL (32.0-36.0); Mean Corpuscular Hemoglobin 29.1 pg (27.0-31.0); Mean Corpuscular Volume 90.7 fL (78.0-98.0); Mean Platelet Volume 9.8 fL (7.4-10.4); Platelet Count 354 10x3/uL (130-400); RBC Distribution Width 14.1 % (11.5-14.5); Red Blood Cell (RBC) Count 3.33 mill/uL (4.20-5.40)
[2024-02-06 06:09] LABS: Anion Gap 12 mmol/L (10-20); BUN (Urea Nitrogen) 8 mg/dL (9.8-20.1); Calc. Creatinine Clearance 62 mL/min (70-130); Calcium 8.6 mg/dL (7.8-10.44); Carbon Dioxide 26 mmol/L (23-31); Chloride 103 mmol/L (98-107); Estimated GFR 88; Glucose 106 mg/dL (83-110); Magnesium 1.7 mg/dL (1.6-2.6); Potassium 3.5 mmol/L (3.5-5.1); Sodium 137 mmol/L (136-145)
[2024-02-07 05:48] LABS: #Basophils 0.04 10x3/uL (0.0-0.2); %Basophils 0.4 % (0.0-1.0); %Eosinophils 3.6 % (0.0-10.0); %Lymphocytes 14.5 % (21.0-51.0); %Monocytes 6.8 % (0.0-10.0); %Neutrophils 70.8 % (42.0-75.0); Hematocrit 31.5 % (36.0-47.0); Hemoglobin 10.2 g/dL (12.0-16.0); Mean Corpuscular HGB CONC 32.4 g/dL (32.0-36.0); Mean Corpuscular Hemoglobin 30.1 pg (27.0-31.0); Mean Corpuscular Volume 92.9 fL (78.0-98.0); Mean Platelet Volume 9.6 fL (7.4-10.4); Platelet Count 351 10x3/uL (130-400); RBC Distribution Width 14.5 % (11.5-14.5); Red Blood Cell (RBC) Count 3.39 mill/uL (4.20-5.40)
[2024-02-07 06:05] LABS: Anion Gap 11 mmol/L (10-20); BUN (Urea Nitrogen) 9 mg/dL (9.8-20.1); Calc. Creatinine Clearance 58 mL/min (70-130); Calcium 8.9 mg/dL (7.8-10.44); Carbon Dioxide 27 mmol/L (23-31); Chloride 103 mmol/L (98-107); Estimated GFR 86; Glucose 104 mg/dL (83-110); Magnesium 1.8 mg/dL (1.6-2.6); Potassium 3.3 mmol/L (3.5-5.1); Sodium 138 mmol/L (136-145)
[2024-02-07 21:22] VITALS: BP 151/71; TEMP 97.9
== END 2024-02-07 20:15 | disposition swing bed (61) | DRG 689 ==
LOC: ERS 10:01 → SUATTDRO 10:01 → T4-A 15:24
PROVIDERS: ADMIT Internal Medicine; ATTEND Hospitalist
PROC: 4A00X4Z Measurement of Central Nervous Electrical Activity, External Approach (ICD-10-PCS; principal; 2024-02-03)
DX: N39.0 Urinary tract infection, site not specified (principal); G93.41 Metabolic encephalopathy; I10 Essential (primary) hypertension; F03.90 Unspecified dementia, unspecified severity, without behavioral disturbance, psychotic disturbance, mood disturbance, and anxiety; G40.909 Epilepsy, unspecified, not intractable, without status epilepticus; Z66 Do not resuscitate; M19.90 Unspecified osteoarthritis, unspecified site; Z88.0 Allergy status to penicillin; Z88.2 Allergy status to sulfonamides; Z91.040 Latex allergy status; Z86.73 Personal history of transient ischemic attack (TIA), and cerebral infarction without residual deficits; Z90.11 Acquired absence of right breast and nipple; Z87.891 Personal history of nicotine dependence; Z51.5 Encounter for palliative care; Z96.641 Presence of right artificial hip joint; B96.20 Unspecified Escherichia coli [E. coli] as the cause of diseases classified elsewhere
CPT/HCPCS: 36415; 51701; 70450; 71045; 71275; 80048; 80053; 80164; 80177; 80202; 80306; 80307; 81001; 82140; 83690; 83735; 84146; 84443; 84484; 85025; 87077; 87086; 87186; 93005; 94760; 95700; 95711; 95957; 96374; 96375; J0690; J0696; J1650; J1953; J2060; J3370; J3370-JW; J7030; J7050; Q9967